=== PATIENT | male | born 1995 | race Two or more races ===

== ENCOUNTER 2018-02-02 10:28 | Emergency (ER) | payer OTHER, MEDICAID ==
[~2018-02-02] VITALS: Ht 167.6 cm; Wt 72.6 kg
[2018-02-02 10:47] VITALS: BP 142/89
== END 2018-02-02 13:20 | disposition left against medical advice (07) ==
LOC: ER 10:28
DX: M25.571 Pain in right ankle and joints of right foot (principal); Z53.21 Procedure and treatment not carried out due to patient leaving prior to being seen by health care provider
CPT/HCPCS: 73610

== ENCOUNTER 2018-10-13 12:57 | Emergency (ER) | payer MEDICAID ==
[~2018-10-13] VITALS: Ht 170.2 cm; Wt 65.8 kg
[2018-10-13 13:29] VITALS: BP 145/90
[2018-10-13] MEDS ORDERED: cefTRIAXone 1GM/50ML D5W 50 ML IV ONE (14:00)
[2018-10-13] MEDS ORDERED: SODIUM CHLORIDE 0.9% 1,000 ML IV ONE (14:00)
[2018-10-13 14:07] LABS: Basophils # (auto) 0.1 uL; Basophils % (auto) 0.5 % (0.0-2.0); Eosinophils # (auto) 0 uL; Eosinophils % (auto) 0.5 % (0.0-7.0); Hematocrit 41.2 % (41.0-53.0); Lymphocytes # (auto) 2.2 uL; Mean Corpuscular Hemoglobin 30.1 pg (28.0-32.0); Mean Corpuscular Volume 88.5 fL (80.0-100.0); Monocytes # (auto) 0.7 uL; Monocytes % (auto) 6.1 % (0.0-12.0); Neutrophils # (auto) 7.9 uL; Neutrophils % (auto) 72.9 % (37.0-80.0); Platelet Count (auto) 335 10^3/uL (140-450); Red Blood Cells 4.66 10^6/uL (4.5-5.90); Red Cell Distribution Width 12.6 % (11.8-14.3); White Blood Cell 10.8 10^3/uL (4.4-10.8)
[2018-10-13 14:16] LABS: Albumin 3.9 g/dL (3.4-5.0); BUN/Creatinine Ratio 21.3; Calcium 9.1 mg/dL (8.5-10.1)
[2018-10-13 14:19] LABS: Bilirubin, Total 0.7 mg/dL (0.2-1.0)
[2018-10-13] MEDS ORDERED: TETANUS-DIPTH-ACEL PERTUSSIS 0.5ML SYRG IM ONE (14:30)
== END 2018-10-13 16:47 | disposition left against medical advice (07) ==
LOC: ER 12:57
DX: L03.113 Cellulitis of right upper limb (principal); F17.210 Nicotine dependence, cigarettes, uncomplicated; F12.10 Cannabis abuse, uncomplicated; F15.10 Other stimulant abuse, uncomplicated; F11.10 Opioid abuse, uncomplicated
CPT/HCPCS: 36415; 80053; 83615; 85025; 87040; 96365; 99283; J0696; J7030

== ENCOUNTER 2020-03-24 17:56 | Emergency (ER) | payer MEDICAID ==
[~2020-03-24] VITALS: Ht 167.6 cm; Wt 68.0 kg
[2020-03-24 18:06] VITALS: BP 129/81
[2020-03-24] MEDS ORDERED: SODIUM CHLORIDE 0.9% 1,000 ML IV ONE (23:00)
[2020-03-24] MEDS ORDERED: cefTRIAXone 1GM/50ML D5W 50 ML IV ONE (23:30)
== END 2020-03-24 23:43 | disposition left against medical advice (07) ==
LOC: ER 17:56
DX: S40.851A Superficial foreign body of right upper arm, initial encounter (principal); F19.10 Other psychoactive substance abuse, uncomplicated; F17.210 Nicotine dependence, cigarettes, uncomplicated; X58.XXXA Exposure to other specified factors, initial encounter; Y93.89 Activity, other specified; Y92.89 Other specified places as the place of occurrence of the external cause; Y99.8 Other external cause status
CPT/HCPCS: 73080

== ENCOUNTER 2020-09-17 12:48 | Emergency (ER) | payer MEDICAID ==
[~2020-09-17] VITALS: Ht 165.1 cm; Wt 59.0 kg
[2020-09-17 15:01] VITALS: BP 156/94
== END 2020-09-17 15:15 | disposition left against medical advice (07) ==
LOC: ER 12:48
DX: M54.9 Dorsalgia, unspecified (principal); Z53.21 Procedure and treatment not carried out due to patient leaving prior to being seen by health care provider

== ENCOUNTER 2023-05-22 12:44 | Emergency (ER) | payer MEDICAID ==
[~2023-05-22] VITALS: Ht 172.7 cm; Wt 63.7 kg
[2023-05-22 15:01] VITALS: BP 115/61; PULSE 72; RESP 18; TEMP 97.6; O2SAT 97
== END 2023-05-22 15:03 | disposition home or self-care (01) ==
LOC: ER 12:44
DX: S50.351A Superficial foreign body of right elbow, initial encounter (principal); F17.210 Nicotine dependence, cigarettes, uncomplicated; W25.XXXA Contact with sharp glass, initial encounter; Y93.89 Activity, other specified; Y92.89 Other specified places as the place of occurrence of the external cause; Y99.8 Other external cause status
CPT/HCPCS: 73080

== ENCOUNTER 2023-08-31 11:17 | Emergency (ER) | payer MEDICAID ==
[~2023-08-31] VITALS: Ht 170.2 cm; Wt 64.0 kg
[2023-08-31 13:15] VITALS: BP 117/80; PULSE 68; RESP 17; TEMP 98.6; O2SAT 97
== END 2023-08-31 13:04 | disposition home or self-care (01) ==
LOC: ER 11:17
DX: J30.9 Allergic rhinitis, unspecified (principal); F17.210 Nicotine dependence, cigarettes, uncomplicated; F12.10 Cannabis abuse, uncomplicated; F15.10 Other stimulant abuse, uncomplicated

== ENCOUNTER 2024-05-07 20:11 | Emergency (ER) | payer MEDICAID | END 2024-05-07 21:16 | disposition left against medical advice (07) | LOC: ER 20:11 | DX: R06.02 Shortness of breath (principal); Z53.21 Procedure and treatment not carried out due to patient leaving prior to being seen by health care provider ==

== ENCOUNTER 2024-08-14 11:34 | Emergency (ER) | payer MEDICAID ==
[~2024-08-14] VITALS: Ht 167.6 cm; Wt 64.7 kg
[2024-08-14 12:33] LABS: Urine Bacteria None Seen /hpf (None Seen)
[2024-08-14 12:55] LABS: Urine Blood Negative /uL (Negative); Urine Clarity Clear (Clear); Urine Color Yellow (Yellow); Urine Mucus MODERATE (None Seen); Urine Protein, UAD TRACE (Negative); Urine Specific Gravity 1.027 (1.001-1.035); Urine Squamous Epithelial Cell None Seen /hpf (<5); Urine Urobilinogen 6 mg/dL (Negative); Urine WBC 2 /HPF (0-3); Urine pH 5.5 (5.0-9.0)
[2024-08-14 13:00] VITALS: PULSE 115; RESP 17; O2SAT 95
--- NOTE | 2024-08-14 13:12 | ED.PDOC ---
History of Present Illness HPI Comments 29 y.o male presents to the ED for an evaluation of a possible snake bite last night. Patient reports this morning experiencing palpitations and what he describes as "hissing" sounds around his chest and abdomen region. Patient did not see a snake but is concerned duet to the hissing sounds he hears. Patient d enies any psychiatric history such as schizophrenia, bipolar disorder. Patient does admit to methamphetamine use. Chief Complaint: Animal Bite Time Seen by MD: 13:05 Primary Care Provider: NONE Reviewed Notes: Nurses Notes, Medications, Allergies Allergies: Coded Allergies: No Known Drug Allergy (Verified Allergy, Unknown, 10/13/18) Information Source: Patient Mode of Arrival: Ambulatory Severity: Moderate Timing: Minutes Duration: Since onset Past Medical History PAST MEDICAL HISTORY: Denies Surgical History: Denies all surgeries Family History Family History: Reviewed,noncontributory to illness Social History Smoker: Cigarettes, Less Than 1 Pack/Day Alcohol: Rarely Drugs: Heroin, Marijuana, Methamphetamine Lives In: Home Constitutional: denies: chills, diaphoresis, fatigue, fever, malaise, sweats, weakness, others EENTM: denies: blurred vision, double vision, ear bleeding, ear discharge, ear drainage, ear pain, ear ringing, eye pain, eye redness, hearing loss, mouth pain, mouth swelling, nasal discharge, nose bleeding, nose congestion, nose pain, photophobia, tearing, throat pain, throat swelling, voice changes, others Respiratory: denies: cough, hemoptysis, orthopnea, SOB at rest, shortness of breath, SOB with excertion, stridor, wheezing, others Cardiovascular: reports: palpitations; denies: chest pain, dizzy spells, diaphoresis, Dyspnea on exertion, edema, irregular heart beat, left arm pain, lightheadedness, PND, syncope, others Gastrointestinal: denies: abdomen distended, abdominal pain, blood streaked bowels, constipated, diarrhea, dysphagia, difficulty swallowing, hematemesis, melena, nausea, poor appetite, poor fluid intake, rectal bleeding, rectal pain, vomiting, others Genitourinary: denies: burning, dysuria, flank pain, frequency, hematuria, incontinence, penile discharge, penile sore, pain, testicle pain, testicle swelling, urgency, others Neurological: denies: dizziness, fainting, headache, left sided numbness, left sided weakness, numbness, paresthesia, pre-existing deficit, right sided numbness, right sided weakness, seizure, speech problems, tingling, tremors, weakness, others Musculoskeletal: denies: back pain, gout, joint pain, joint swelling, muscle pain, muscle stiffness, neck pain, others Integumetry: denies: bruises, change in color, change in hair/nails, dryness, laceration, lesions, lumps, rash, wounds, others Allergic/Immunocompromised: denies: Difficulty Healing, Frequent Infections, Hives, Itching, others Hematologic/Lymphatic: denies: anemia, blood clots, easy bleeding, easy bruising, swollen glands, others Endocrine: denies: excessive hunger, excessive sweating, excessive thirst, excessive urination, flushing, intolerance to cold, intolerance to heat, unexplained weight gain, unexplained weight loss, others Psychiatric: denies: anxiety, bipolar disorder, depression, hopeless, panic disorder, schizophrenia, sleepless, suicidal, others All Other Systems: Reviewed and Negative Physical Exam General Appearance: No Apparent Distress HEENT: Normal ENT Inspection, Pharynx Normal, TMs Normal Neck: Full Range of Motion, Non-Tender, Normal, Normal Inspection Respiratory: Chest Non-Tender, Lungs Clear, No Accessory Muscle Use, No Respiratory Distress, Normal Breath Sounds Cardiovascular: No Edema, No JVD, No Murmur, No Gallop, Normal Peripheral Pulses, Regular Rate/Rhythm Breast Exam: Deferred Gastrointestinal: No Organomegaly, Non Tender, No Pulsatile Mass, Normal Bowel Sounds, Soft Genitalia: Deferred Pelvic: Deferred Rectal: Deferred Extremities: No calf tenderness, Normal capillary refill, Normal inspection, Normal range of motion, Non-tender, No pedal edema Musculoskeletal : Apperance: Normal Neurologic: Alert, chronic condition nurse II-XII nml as Tested, No Motor Deficits, No Sensory Deficits, Other (The patient was exhibiting signs of anxiety and seems to be responding to internal stimuli. The patient denies any suicidal or homicidal ideation at this time) Cerebellar Function: Normal Reflexes: Normal Skin: Dry, Normal Color, Warm Lymphatic: No Adenopathy Was a procedure done? Was a procedure done?: No Differential Dx Considerations may include: Acute anxiety, schizophrenia, bipolar disorder, dehydration X-Ray, Labs, Meds, VS Lab Test 08/14/24 12:33 Range/Units Urine Color Yellow Yellow Urine Clarity Clear Clear Urine pH 5.5 5.0-9.0 Urine Specific Hilliards 1.027 1.001-1.035 Urine Protein Trace H Negative Urine Ketones 2+ H Negative Urine Blood Negative Negative /uL Urine Nitrite Negative Negative Urine Bilirubin 1+ Negative Urine Urobilinogen 6 Negative mg/dL Urine Leukocyte Esterase Negative Negative /uL Urine RBC 1 0 - 3 /hpf Urine Microscopic WBC 2 0-3 /HPF Urine Squamous Epithelial Cells None seen <5 /hpf Urine Calcium Oxalate Crystals Few None Seen Urine Bacteria None seen None Seen /hpf Urine Mucus Moderate None Seen Urine Glucose Normal Normal mg/dL The patient's urine test is negative for infection The patient was being discharged and will follow up with the primary care doctor The patient will return to the emergency department's condition worsens. We feel that the patient's condition is secondary to his methamphetamine use We did tell him that he needs to stop using at this time The patient was told to follow up with a possible therapist the versus a psychiatrist We do not feel that this patient has anything life-threatening at this time Time of 1ST Reevaluation: 13:12 Reevaluation 1ST: Unchanged Patient Education/Counseling: Diagnosis, Treatment, Prognosis, Need For Follow Up Family Education/Counseling: No Family Present Departure 1 Departure Time of Disposition: 13:16 Impression: Primary Impression: Acute anxiety Additional Impression: Methamphetamine use Disposition: 01 HOME / SELF CARE / HOMELESS Condition: Fair Discharged With: Self Critical Care Note Critical Care Time?: No Stability Stability form required: No I personally scribed for DINORA MUSA MD ([email or web address]) on 08/14/24 at 13:12. Electronically submitted by Radha Cam ([facility]). DINORA MUSA MD Aug 14, 2024 13:12
[2024-08-14 14:20] LABS: Phencyclidine Screen, Urine Neg (NEGATIVE)
[2024-08-14 14:31] LABS: Amphetamine Screen, Urine Pos (NEGATIVE); Barbiturate Scree,Urine Neg (NEGATIVE); Benzodiazephine Screen, Urine Neg (NEGATIVE); Cannabinoid Screen, Urine Neg (NEGATIVE); Cocaine Screen, Urine Neg (NEGATIVE); Opiate Scree,Urine Neg (NEGATIVE)
[2024-08-14 15:00] VITALS: BP 134/87; PULSE 97; RESP 16; TEMP 97.9; O2SAT 96
== END 2024-08-14 15:00 | disposition home or self-care (01) ==
LOC: ER 11:34
DX: F41.9 Anxiety disorder, unspecified (principal); F15.90 Other stimulant use, unspecified, uncomplicated; F17.210 Nicotine dependence, cigarettes, uncomplicated; Z79.899 Other long term (current) drug therapy
CPT/HCPCS: 80307; 81001